=== PATIENT | female | born 1990 | race Caucasian/White ===

== ENCOUNTER 2017-03-22 07:20 | Emergency (ER) | payer BC ==
[~2017-03-22] VITALS: Ht 162.6 cm; Wt 64.0 kg
[~2017-03-22 07:20] MED LIST: FLEXERIL10 MG PO; NAPROSYN500 MG PO
[2017-03-22 07:48] LABS: EOSINOPHIL (%) 0.5 % (0-5); HEMATOCRIT 38.4 % (36.0-46.0); IMMATURE GRANULOCYTE (%) 0.2 % (0.0-0.7); LYMPHOCYTE COUNT 0.9 K/uL (1.0-2.8); MCH 31.6 PG (29.0-34.0); MCHC 34.1 G/DL (30.0-36.0); MCV 92.8 FL (83-99); MEAN PLAT.VOLUME 9.2 uM^3 (9.5-12.4); MONOCYTE (%) 4.7 % (3-12); MONOCYTE COUNT 0.3 K/uL (0-0.8); NEUTROPHIL (%) 80.5 % (45-76); PLATELET COUNT 208 K/uL (156-360); RBC DIS.WIDTH-SD 41.5 % (39-53); RED BLOOD COUNT 4.14 M/uL (3.80-5.20); WHITE BLOOD COUNT 6.2 K/uL (4.1-10.2)
[2017-03-22 08:07] LABS: CHLORIDE 108 mEq/L (99-109); POTASSIUM 3.6 mEq/L (3.7-5.4); SODIUM 139 mEq/L (136-147)
[2017-03-22 08:09] LABS: GLUCOSE 123 mg/dL (70-99)
[2017-03-22 08:11] LABS: ANION GAP 8 MEQ/L (2-14); TOTAL BILIRUBIN 0.6 mg/dL (0.0-1.0)
[2017-03-22 08:13] LABS: ALKALINE PHOSPHATASE 35 IU/L (3-129); GFR ESTIMATE (CALCULATED) > 59 mL/min/
[2017-03-22 08:14] LABS: UREA NITROGEN (BUN) 15 mg/dL (9-23)
[2017-03-22 08:17] LABS: LIPASE 22 U/L (1.0-51.0)
[2017-03-22 08:22] LABS: QUANTITATIVE HCG < 4.0 MIU/ML
[2017-03-22 09:15] LABS: ADD MIUA? YES; BILIRUBIN NEGATIVE; BLOOD MODERATE; COLOR YELLOW ((YELLOW)); GLUCOSE (STRIP) NEGATIVE; KETONES 80; LEUKOCYTES TRACE; NITRITE NEGATIVE; PROTEIN (STRIP) 30; SPECIFIC GRAVITY 1.026 (1.000-1.030); UROBILINOGEN 0.2 MG/DL (0.2-1.0)
[2017-03-22 09:29] LABS: BACTERIA RARE /HPF; EPITHELIAL CELLS RARE /HPF; MUCUS TRACE /LPF; RED BLOOD CELLS TNTC /HPF (0-5)
[2017-03-22] MEDS ORDERED: INDOCIN50 MG PO (10:07)
[2017-03-22] MEDS ORDERED: DONNATAL1 TABLET PO (10:07)
[2017-03-22 10:33] VITALS: BP 101/67
== END 2017-03-22 10:38 | disposition home or self-care (01) ==
LOC: EME 07:20
PROVIDERS: Emergency Medicine
DX: R10.817 Generalized abdominal tenderness (principal); F17.200 Nicotine dependence, unspecified, uncomplicated; Z88.0 Allergy status to penicillin
CPT/HCPCS: 80053; 81003; 83690; 84702; 85025; 99281; 99284; J3010